=== PATIENT | male | born 1985 | race Caucasian/White ===

== ENCOUNTER → 2021-05-06 | Day surgery (SDC) | payer BC ==
[~2021-05-06] VITALS: Ht 175.3 cm; Wt 92.5 kg
[~2021-05-06] MED LIST: ALKA-SELTZER O1 EACH PO; BUSPAR 10MG10 MG PO; CELEXA 20MG TAB20 MG PO; DEXILANT60 MG PO; FAMOTIDINE40 MG PO; KEPPRA500 MG PO; LORATADINE10 MG PO; MEDROL4 MG PO; MONTELUKAST SOD10 MG PO; MULTI-VITAMIN1 EACH PO; VISTARIL25 MG PO; VITAMIN C500 M4 PO; VITAMIN D21250 MCG PO
== END | disposition home or self-care (01) ==
LOC: OR 06:58
DX: K21.00 Gastro-esophageal reflux disease with esophagitis, without bleeding (principal); K29.50 Unspecified chronic gastritis without bleeding; K44.9 Diaphragmatic hernia without obstruction or gangrene; K31.89 Other diseases of stomach and duodenum; G40.909 Epilepsy, unspecified, not intractable, without status epilepticus; F41.9 Anxiety disorder, unspecified; E66.9 Obesity, unspecified; Z68.30 Body mass index [BMI] 30.0-30.9, adult; Z79.82 Long term (current) use of aspirin; Z79.899 Other long term (current) drug therapy; Z20.822 Contact with and (suspected) exposure to COVID-19
CPT/HCPCS: J2704; J7040

== ENCOUNTER → 2021-06-24 | Day surgery (SDC) | payer BC | END | disposition home or self-care (01) | LOC: OR 06:28 | DX: K62.5 Hemorrhage of anus and rectum (principal); K64.0 First degree hemorrhoids; K64.4 Residual hemorrhoidal skin tags; K21.00 Gastro-esophageal reflux disease with esophagitis, without bleeding; E66.01 Morbid (severe) obesity due to excess calories; Z68.30 Body mass index [BMI] 30.0-30.9, adult; G40.909 Epilepsy, unspecified, not intractable, without status epilepticus; K44.9 Diaphragmatic hernia without obstruction or gangrene; Z79.82 Long term (current) use of aspirin; Z20.822 Contact with and (suspected) exposure to COVID-19 | CPT/HCPCS: J2250; J2704; J7040 ==

== ENCOUNTER → 2021-06-27 | Outpatient (CLI) | payer BC | LOC: RAD 07:24 | DX: K21.00 Gastro-esophageal reflux disease with esophagitis, without bleeding (principal); K22.0 Achalasia of cardia; K44.9 Diaphragmatic hernia without obstruction or gangrene | CPT/HCPCS: 74221 ==